=== PATIENT | female | born 1965 | race Caucasian/White ===

== ENCOUNTER → 2018-06-26 | Outpatient (CLI) | payer BC | LOC: FIMAGING 08:36 | PROVIDERS: ATTEND Orthopaedic Surgery | DX: Z13.820 Encounter for screening for osteoporosis (principal); M81.0 Age-related osteoporosis without current pathological fracture ==

== ENCOUNTER 2018-07-13 21:45 | Emergency (ER) | payer BC ==
[2018-07-13] MEDS ORDERED: NS 1,000 ML IV ONE (22:36)
[2018-07-13 23:01] LABS: PLATELET COUNT 221 10^3/uL (150-400)
[2018-07-14] MEDS ORDERED: ACETAMINOPHEN 500 MG TAB ONE (00:44)
[2018-07-14] MEDS ORDERED: ACETAMINOPHEN 500 MG TAB PO ONE (00:47)
[2018-07-14] MEDS ORDERED: ONDANSETRON 4 MG/2 ML VIAL IVP ONE (01:55)
--- NOTE | 2018-07-14 02:12 | EDPHY ---
H & P Stated Complaint: FEVER,NAUSEA,PAINFUL URINATION/DX UTI ON MON Time Seen by Provider: 07/13/18 22:36 HPI/ROS: Chief complaint: Fever, malaise, urinary tract infection History of present illness: This is a 53-year-old female who presents to the emergency department reporting fever, malaise and a recent urinary tract infection. She states she developed urinary tract infection like symptoms at the beginning of the week. She reports discomfort with urination and urinary frequency. She was started on Macrobid. She states by mid week symptoms had almost resolved. However, towards the end of the week symptoms had returned and started to worsen. In addition to urinary symptoms she reports fevers up to 102. She has had nausea and vomiting. She describes generalized malaise. The symptoms have been waxing and waning. She is not sure if this is worsening of the urinary tract infection or a new problem. She denies other associated signs or symptoms including no respiratory symptoms, no abdominal pain, no diarrhea or constipation. Review of systems: A 10 point review of systems was obtained and other than described above was negative - Personal History Current Tetanus Diphtheria and Acellular Pertussis (TDAP): No - Medical/Surgical History Hx Asthma: No Hx Chronic Respiratory Disease: No Hx Diabetes: No Hx Cardiac Disease: No Hx Renal Disease: No Hx Cirrhosis: No Hx Alcoholism: No Hx HIV/AIDS: No Hx Splenectomy or Spleen Trauma: No Other PMH: BROKEN HIP L APRIL 2018 NO SX, OSTEOPEROSIS - Social History Smoking Status: Never smoked - Physical Exam Exam: General Appearance: Alert, nontoxic, easily conversant. Eyes: Pupils equal and round no pallor or injection. ENT, Mouth: Mucous membranes moist. Respiratory: There are no retractions, lungs are clear to auscultation. Cardiovascular: Regular rate and rhythm. Gastrointestinal: Bowel sounds are normal. The abdomen is soft, nondistended, nontender. There is no Burger sign. No McBurney's point tenderness. No rebound tenderness. No guarding. Genitourinary: No CVA tenderness. No suprapubic tenderness. Neurological: Alert and oriented x4. Strength and sensation intact and symmetrical. Skin: Warm and dry, no rashes. Musculoskeletal: Neck is supple nontender. Extremities are symmetrical, full range of motion. Psychiatric: Patient is oriented X 3, there is no agitation. Constitutional: Initial Vital Signs Temperature (C) 37.0 C 07/13/18 21:57 Heart Rate 78 07/13/18 21:57 Respiratory Rate 16 07/13/18 21:57 Blood Pressure 150/101 H 07/13/18 21:57 O2 Sat (%) 97 07/13/18 21:57 O2 Delivery Mode Room Air Allergies/Adverse Reactions: No Known Allergies Allergy (Unverified 07/13/18 21:57) Home Medications: Medication Instructions Recorded Macrobid 07/13/18 Cephalexin [Keflex (*)] 500 mg PO QID 10 Days cap 07/14/18 Ondansetron Odt [Zofran Odt 4 mg 4 mg PO Q4-6PRN PRN #12 tab 07/14/18 (*)] Medical Decision Making - Diagnostics Imaging: Discussed imaging studies w/ inbound call center agent Radiologist ED Course/Re-evaluation: Patient was discussed with my secondary supervising physician Dr. Reddy Suarez. Patient presents to the emergency department with fever, malaise and concern for a urinary tract infection. On presentation she is nontoxic. Her vital signs are stable. Her physical exam is benign including a benign genitourinary and abdominal exam. Blood studies are obtained and unremarkable. Urinalysis is concerning for potential infection-urine culture is pending. CT scan was obtained to rule out stone or other pathology and was unremarkable- there was note of possible dilated biliary track - patient's LFTs are normal, she has no abdominal discomfort or tenderness, doubtful there is a biliary tract issue at this time Flu swabs are negative. At this time I have discussed with her that I am concerned she has an ongoing urinary tract infection. She has been IV hydrated but only wanted minimal fluid. She has been given 1 g Rocephin IV. She is tolerating oral challenges. She will be started on Keflex. At her request I called in a prescription to a 24 hr pharmacy for both Keflex and Zofran to the [facility] on and . She is given a paper prescriptions for back up. Home care including rest and hydration was discussed. She was given strict return precautions. She is otherwise to follow up with a primary care doctor for recheck. Patient has voiced understanding and agreement with plan. Differential Diagnosis: Included but not limited to urinary tract disease including infection and stone , viral infections such as influenza, other intra-abdominal pathology - Data Points Laboratory Results: Laboratory Results 07/13/18 22:53 07/13/18 22:53 07/13/18 07/13/18 07/13/18 22:53 22:53 22:53 WBC RBC Hgb Hct MCV MCH MCHC RDW Plt Count MPV Neut % (Auto) Lymph % (Auto) [place] % (Auto) Eos % (Auto) Baso % (Auto) Nucleat RBC Rel Count Absolute Neuts (auto) Absolute Lymphs (auto) Absolute Monos (auto) Absolute Eos (auto) Absolute Basos (auto) Absolute Nucleated RBC Immature Gran % Immature Gran # RBC/WBC/PLT Morphology Platelet Estimate Sodium Potassium Chloride Carbon Dioxide Anion Gap BUN Creatinine Estimated GFR Glucose Calcium Total Bilirubin 1.3 mg/dL mg/dL (0.1-1.4) Conjugated Bilirubin 0.4 mg/dL mg/dL (0.0-0.5) Unconjugated Bilirubin 0.9 mg/dL mg/dL (0.0-1.1) AST 26 IU/L IU/L (14-46) ALT 24 IU/L IU/L (9-52) Alkaline Phosphatase 82 IU/L IU/L (38-126) Total Protein 7.0 g/dL g/dL (6.3-8.2) Albumin 4.1 g/dL g/dL (3.5-5.0) Lipase 85 IU/L IU/L (23-300) Beta HCG, Qual NEGATIVE Urine Color Urine Appearance Urine pH Ur Specific Dell Urine Protein Urine Ketones Urine Blood Urine Nitrate Urine Bilirubin Urine Urobilinogen Ur Leukocyte Esterase Urine RBC Urine WBC Ur Epithelial Cells Urine Mucus Urine Glucose Nasal Influenza A PCR NEGATIVE FOR FLU A (NEGATIVE) Nasal Influenza B PCR NEGATIVE FOR FLU B (NEGATIVE) 07/13/18 07/13/18 07/13/18 22:53 22:53 22:00 WBC 4.38 10^3/uL 10^3/uL (3.80-9.50) RBC 4.52 10^6/uL 10^6/uL (4.18-5.33) Hgb 14.2 g/dL g/dL (12.6-16.3) Hct 41.6 % % (38.0-47.0) MCV 92.0 fL fL (81.5-99.8) MCH 31.4 pg pg (27.9-34.1) MCHC 34.1 g/dL g/dL (32.4-36.7) RDW 12.7 % % (11.5-15.2) Plt Count 221 10^3/uL 10^3/uL (150-400) MPV 9.4 fL fL (8.7-11.7) Neut % (Auto) 87.0 % H % (39.3-74.2) Lymph % (Auto) 3.9 % L % (15.0-45.0) [place] % (Auto) 5.0 % % (4.5-13.0) Eos % (Auto) 3.4 % % (0.6-7.6) Baso % (Auto) 0.5 % % (0.3-1.7) Nucleat RBC Rel Count 0.0 % % (0.0-0.2) Absolute Neuts (auto) 3.81 10^3/uL 10^3/uL (1.70-6.50) Absolute Lymphs (auto) 0.17 10^3/uL L 10^3/uL (1.00-3.00) Absolute Monos (auto) 0.22 10^3/uL L 10^3/uL (0.30-0.80) Absolute Eos (auto) 0.15 10^3/uL 10^3/uL (0.03-0.40) Absolute Basos (auto) 0.02 10^3/uL 10^3/uL (0.02-0.10) Absolute Nucleated RBC 0.00 10^3/uL 10^3/uL (0-0.01) Immature Gran % 0.2 % % (0.0-1.1) Immature Gran # 0.01 10^3/uL 10^3/uL (0.00-0.10) RBC/WBC/PLT Morphology TNP Platelet Estimate TNP Sodium 138 mEq/L mEq/L (135-145) Potassium 3.9 mEq/L mEq/L (3.5-5.2) Chloride 107 mEq/L mEq/L (97-110) Carbon Dioxide 22 mEq/l mEq/l (22-31) Anion Gap 9 mEq/L mEq/L (6-14) BUN 14 mg/dL mg/dL (7-23) Creatinine 0.7 mg/dL mg/dL (0.6-1.0) Estimated GFR > 60 Glucose 108 mg/dL H mg/dL (70-100) Calcium 9.7 mg/dL mg/dL (8.5-10.4) Total Bilirubin Conjugated Bilirubin Unconjugated Bilirubin AST ALT Alkaline Phosphatase Total Protein Albumin Lipase Beta HCG, Qual Urine Color YELLOW Urine Appearance HAZY Urine pH 5.0 (5.0-7.5) Ur Specific Dell 1.030 (1.002-1.030) Urine Protein NEGATIVE (NEGATIVE) Urine Ketones TRACE H (NEGATIVE) Urine Blood NEGATIVE (NEGATIVE) Urine Nitrate NEGATIVE (NEGATIVE) Urine Bilirubin NEGATIVE (NEGATIVE) Urine Urobilinogen 2.0 EU H EU (0.2-1.0) Ur Leukocyte Esterase 1+ H (NEGATIVE) Urine RBC 3-5 /hpf H /hpf (0-3) Urine WBC 25-50 /hpf H /hpf (0-3) Ur Epithelial Cells TRACE /lpf /lpf (NONE-1+) Urine Mucus TRACE /lpf /lpf (NONE-1+) Urine Glucose NEGATIVE (NEGATIVE) Nasal Influenza A PCR Nasal Influenza B PCR Medications Given: Discontinued Medications Acetaminophen (Tylenol) 1,000 mg PO EDNOW ONE Stop: 07/14/18 00:48 Last Admin: 07/14/18 00:49 Dose: 1,000 mg Cephalexin (Keflex 500 Mg Prepack#4) 1 btl TAKEHOME EDNOW ONE PRN Reason: Protocol Stop: 07/14/18 02:15 Last Admin: 07/14/18 02:18 Dose: 1 btl Sodium Chloride (Ns) 1,000 mls @ 0 mls/hr IV EDNOW ONE; Wide Open PRN Reason: Protocol Stop: 07/13/18 22:37 Last Admin: 07/13/18 22:49 Dose: 1,000 mls Ceftriaxone Sodium/Dextrose (Rocephin 1 Gm (Premix)) 50 mls @ 100 mls/hr IV EDNOW ONE PRN Reason: Protocol Stop: 07/14/18 02:05 Last Admin: 07/14/18 02:02 Dose: 50 mls Ondansetron HCl (Zofran) 4 mg IVP EDNOW ONE Stop: 07/14/18 01:56 Last Admin: 07/14/18 02:02 Dose: 4 mg Ondansetron HCl (Zofran Odt 4 Mg Prepack#2) 1 btl MANUELITO DAMON ONE Stop: 07/14/18 02:15 Last Admin: 07/14/18 02:19 Dose: 1 btl Departure - Departure Disposition: Home, Routine, Self-Care Clinical Impression: Urinary tract infection Condition: Good Instructions: Urinary Tract Infection in Women (ED) Additional Instructions: Follow-up with a primary care doctor this week for recheck Take antibiotics as prescribed until finished even if feeling better You can use Zofran as prescribed as needed for nausea and vomiting You have prescriptions called into the [facility] on [address] in [place], their phone numbers [phone] The drink plenty of fluids to stay hydrated If symptoms worsen or new symptoms develop seek immediate emergency care Referrals: NONE *PRIMARY CARE P,. [Primary Care Provider] - As per Instructions [facility],. [Clinic] - As per Instructions Prescriptions: Cephalexin [Keflex (*)] 500 mg PO QID 10 Days cap Ondansetron Odt [Zofran Odt 4 mg (*)] 4 mg PO Q4-6PRN PRN #12 tab PRN Reason: Nausea/Vomiting, Use 1st
[2018-07-14 02:13] VITALS: BP 133/79
[2018-07-14] MEDS ORDERED: ONDANSETRON 4MG PREPACK#2 BTL TAKEHOME ONE (02:14)
[2018-07-14] MEDS ORDERED: CEPHALEXIN 500MG PREPACK#4 BTL TAKEHOME ONE (02:14)
== END 2018-07-14 02:22 | disposition home or self-care (01) ==
DX: N39.0 Urinary tract infection, site not specified (principal); R50.9 Fever, unspecified; M79.10 Myalgia, unspecified site; E86.9 Volume depletion, unspecified
CPT/HCPCS: 96365; J0696; J2405

== ENCOUNTER → 2018-08-06 | Outpatient (CLI) | payer BC | LOC: BMCIMAGING 07:49 | PROVIDERS: ATTEND Nurse Practitioner Women's Health | DX: Z12.31 Encounter for screening mammogram for malignant neoplasm of breast (principal); Z80.3 Family history of malignant neoplasm of breast ==